=== PATIENT | male | born 1950 | race Caucasian/White ===

== ENCOUNTER 2018-03-01 09:53 | Observation (INO) | payer MEDICARE ==
[2018-03-01] VITALS (10 sets, daily range): BP systolic 125–176; BP diastolic 59–81; PULSE 65–89; RESP 16–20; TEMP 97.8–98.8; O2SAT 96–100
[~2018-03-01] VITALS: Ht 180.3 cm; Wt 82.0 kg
[2018-03-01] MEDS ORDERED: METO25TA3 PO (10:38)
[2018-03-01] MEDS ORDERED: NEXI20CA PO (10:38)
[2018-03-01] MEDS ORDERED: CYMB60CA PO (10:38)
[2018-03-01] MEDS ORDERED: ALLO300 PO (10:38)
[2018-03-01] MEDS ORDERED: PRAS10TA PO (10:38)
[2018-03-01] MEDS ORDERED: LIPI40TA PO (10:38)
[2018-03-01] MEDS ORDERED: RANO500 PO (10:38)
[2018-03-01] MEDS ORDERED: MOBI15TA PO (10:38)
[2018-03-01 10:57] LABS: AUTOMATED NEUTROPHIL # 16.2 TH/MM3 (1.8-7.7); BASOPHIL % 0.2 % (0.0-2.0); EOSINOPHIL % 0.1 % (0.0-4.0); HEMOGLOBIN 13.9 GM/DL (13.0-17.0); LYMPH % 4.8 % (9.0-44.0); LYMPHOCYTE # 0.9 TH/MM3 (1.0-4.8); MEAN PLATELET VOLUME 7.7 FL (7.0-11.0); MONO % 5.2 % (0.0-8.0); MONOCYTE # 0.9 TH/MM3 (0-0.9); NEUT % 89.7 % (16.0-70.0); PLATELET COUNT 208 TH/MM3 (150-450); RED BLOOD COUNT 4.36 MIL/MM3 (4.50-5.90); RED CELL DISTRIBUTION WIDTH 13.1 % (11.6-17.2)
[2018-03-01 11:03] LABS: INTERNATIONAL NORMALIZED RATIO 1.1 RATIO; PROTHROMBIN TIME - PATIENT 10.7 SEC (9.8-11.6)
--- NOTE | 2018-03-01 11:03 | PD ---
HPI Chief Complaint: Chest Pain Time Seen by Provider: 11:03 Travel History International Travel<30 days: No Contact w/Intl Traveler<30days: No Traveled to known affect area: No History of Present Illness HPI 67-year-old male with history of hypertension, CAD, previous stenting and restenting as recent as 2016, gout, presents to the emergency department for evaluation of acute onset chest pain. This was at 7 AM this morning. Patient was bending over putting on his pressure socks when he experienced left-sided chest pain, sharp, aching. It did not radiate anywhere. It was associated with diaphoresis and nausea. [facility] was contacted and upon arrival patient's blood glucose was low. They did give him D50. Shortly after this, the patient states that his chest pain did resolve. He is not currently having any pain. Patient has not been recently ill. 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 He denies any history of DVT or PE. Patient is here on vacation. He has had a stress test within the last year and he was told that it was negative at that time. Patient has no other symptoms to report PFSH Past Medical History Arthritis: Yes High Cholesterol: Yes Congestive Heart Failure: Yes Hypertension: Yes Myocardial Infarction: Yes Past Surgical History Cardiac Surgery: Yes (STENTS X2) Social History Alcohol Use: Yes (OCC) Tobacco Use: No Substance Use: No Allergies-Medications (Allergen,Severity, Reaction): Coded Allergies: No Known Allergies (Unverified , 03/01/18) Reported Meds & Prescriptions Reported Meds & Active Scripts Active Reported Lipitor (Atorvastatin Calcium) 40 Mg Tab 20 Mg PO HS Ranexa ER 12 HR (Ranolazine) 500 Mg Tab 500 Mg PO BID Cymbalta DR (Duloxetine HCl) 60 Mg Capdr 60 Mg PO DAILY Effient (Prasugrel) 10 Mg Tab 10 Mg PO DAILY Mobic (Meloxicam) 15 Mg Tab 15 Mg PO DAILY Zyloprim (Allopurinol) 300 Mg Tab 300 Mg PO DAILY Metoprolol Tartrate 25 Mg Tab 25 Mg PO BID Nexium (Esomeprazole DR) 20 Mg Capdr 20 Mg PO DAILY Review of Systems Except as stated in HPI: all other systems reviewed are Neg Physical Exam Narrative GENERAL: Well-nourished male patient, in no acute distress. SKIN: Focused skin assessment warm/dry. HEAD: Atraumatic. Normocephalic. EYES: Pupils equal and round. No scleral icterus. No injection or drainage. ENT: No nasal bleeding or discharge. Mucous membranes pink and moist. NECK: Trachea midline. No JVD. CARDIOVASCULAR: Regular rate and rhythm. No murmur appreciated. RESPIRATORY: No accessory muscle use. Clear to auscultation. Breath sounds equal bilaterally. GASTROINTESTINAL: Abdomen soft, non-tender, nondistended. Hepatic and splenic margins not palpable. MUSCULOSKELETAL: No obvious deformities. No clubbing. No cyanosis. No edema. NEUROLOGICAL: Awake and alert. No obvious cranial nerve deficits. Motor grossly within normal limits. Normal speech. PSYCHIATRIC: Appropriate mood and affect; insight and judgment normal. Data Data Last Documented VS Vital Signs Date Time Temp Pulse Resp B/P (MAP) Pulse Ox O2 Delivery O2 Flow Rate FiO2 03/01/18 11:00 72 20 137/73 (94) 97 Room Air 03/01/18 10:04 97.8 Orders Orders Electrocardiogram (03/01/18 10:14) B-Type Natriuretic Peptide (03/01/18 10:14) Ckmb (Isoenzyme) Profile (03/01/18 10:14) Complete Blood Count With Diff (03/01/18 10:14) Comprehensive Metabolic Panel (03/01/18 10:14) D-Dimer (03/01/18 10:14) Magnesium (Mg) (03/01/18 10:14) Prothrombin Time / Inr (Pt) (03/01/18 10:14) Act Partial Throm Time (Ptt) (03/01/18 10:14) Troponin I (03/01/18 10:14) Chest, Single Ap (03/01/18 10:14) Sodium Chlor 0.9% 1000 Ml Inj (Ns 1000 M (03/01/18 11:30) Labs Laboratory Tests Test 03/01/18 10:20 White Blood Count 18.0 TH/MM3 Red Blood Count 4.36 MIL/MM3 Hemoglobin 13.9 GM/DL Hematocrit 41.0 % Mean Corpuscular Volume 94.0 FL Mean Corpuscular Hemoglobin 32.0 PG Mean Corpuscular Hemoglobin Concent 34.0 % Red Cell Distribution Width 13.1 % Platelet Count 208 TH/MM3 Mean Platelet Volume 7.7 FL Neutrophils (%) (Auto) 89.7 % Lymphocytes (%) (Auto) 4.8 % Monocytes (%) (Auto) 5.2 % Eosinophils (%) (Auto) 0.1 % Basophils (%) (Auto) 0.2 % Neutrophils # (Auto) 16.2 TH/MM3 Lymphocytes # (Auto) 0.9 TH/MM3 Monocytes # (Auto) 0.9 TH/MM3 Eosinophils # (Auto) 0.0 TH/MM3 Basophils # (Auto) 0.0 TH/MM3 CBC Comment DIFF FINAL Differential Comment Prothrombin Time 10.7 SEC Prothromb Time International Ratio 1.1 RATIO Activated Partial Thromboplast Time 22.6 SEC D-Dimer Quantitative (PE/DVT) 0.33 MG/L FEU Blood Urea Nitrogen 22 MG/DL Creatinine 1.52 MG/DL Random Glucose 165 MG/DL Total Protein 7.1 GM/DL Albumin 4.1 GM/DL Calcium Level 8.9 MG/DL Magnesium Level 2.0 MG/DL Alkaline Phosphatase 91 U/L Aspartate Amino Transf (AST/SGOT) 28 U/L Alanine Aminotransferase (ALT/SGPT) 30 U/L Total Bilirubin 0.7 MG/DL Sodium Level 143 MEQ/L Potassium Level 3.8 MEQ/L Chloride Level 109 MEQ/L Carbon Dioxide Level 19.5 MEQ/L Anion Gap 15 MEQ/L Estimat Glomerular Filtration Rate 46 ML/MIN Total Creatine Kinase 77 U/L Troponin I 0.03 NG/ML B-Type Natriuretic Peptide 97 PG/ML MDM Medical Decision Making Medical Screen Exam Complete: Yes Emergency Medical Condition: Yes Medical Record Reviewed: Yes Differential Diagnosis ACS versus muscle spasm versus chest wall pain versus pleuritic pain Narrative Course 67-year-old male presents emergency department for evaluation of acute onset left-sided chest pain. Patient does not currently have any pain. He appears well. EKG is complete and reviewed by my attending physician without any acute concern. Laboratory Tests Test 03/01/18 10:20 White Blood Count 18.0 TH/MM3 Red Blood Count 4.36 MIL/MM3 Hemoglobin 13.9 GM/DL Hematocrit 41.0 % Mean Corpuscular Volume 94.0 FL Mean Corpuscular Hemoglobin 32.0 PG Mean Corpuscular Hemoglobin Concent 34.0 % Red Cell Distribution Width 13.1 % Platelet Count 208 TH/MM3 Mean Platelet Volume 7.7 FL Neutrophils (%) (Auto) 89.7 % Lymphocytes (%) (Auto) 4.8 % Monocytes (%) (Auto) 5.2 % Eosinophils (%) (Auto) 0.1 % Basophils (%) (Auto) 0.2 % Neutrophils # (Auto) 16.2 TH/MM3 Lymphocytes # (Auto) 0.9 TH/MM3 Monocytes # (Auto) 0.9 TH/MM3 Eosinophils # (Auto) 0.0 TH/MM3 Basophils # (Auto) 0.0 TH/MM3 CBC Comment DIFF FINAL Differential Comment Prothrombin Time 10.7 SEC Prothromb Time International Ratio 1.1 RATIO Activated Partial Thromboplast Time 22.6 SEC D-Dimer Quantitative (PE/DVT) 0.33 MG/L FEU Blood Urea Nitrogen 22 MG/DL Creatinine 1.52 MG/DL Random Glucose 165 MG/DL Total Protein 7.1 GM/DL Albumin 4.1 GM/DL Calcium Level 8.9 MG/DL Magnesium Level 2.0 MG/DL Alkaline Phosphatase 91 U/L Aspartate Amino Transf (AST/SGOT) 28 U/L Alanine Aminotransferase (ALT/SGPT) 30 U/L Total Bilirubin 0.7 MG/DL Sodium Level 143 MEQ/L Potassium Level 3.8 MEQ/L Chloride Level 109 MEQ/L Carbon Dioxide Level 19.5 MEQ/L Anion Gap 15 MEQ/L Estimat Glomerular Filtration Rate 46 ML/MIN Total Creatine Kinase 77 U/L Troponin I 0.03 NG/ML B-Type Natriuretic Peptide 97 PG/ML Last Impressions Chest X-Ray 03/01/18 1014 Signed Impressions: CONCLUSION: 1. No acute cardiopulmonary disease. Patient does have a leukocytosis of 18,000 with a neutrophil count of 16.2. I discussed this with my attending physician who feels this is likely secondary to his steroid injection for his knee. Patient has no other infectious source to be identified at this time. Hyperglycemia likely due to D50 administration prior to arrival. I discussed the findings with the patient. He will be admitted to the chest pain center for further evaluation and observation. He is in agreement with this plan of care. Diagnosis Primary Impression: Chest pain Qualified Codes: R07.9 - Chest pain, unspecified Additional Impression: Leukocytosis Qualified Codes: D72.829 - Elevated white blood cell count, unspecified Admitting Information Admitting Physician Requests: Observation Condition: Stable Lucille Guthrie Mar 01, 2018 11:03
[2018-03-01 11:05] LABS: D-DIMER 0.33 MG/L FEU (0.00-0.50)
--- NOTE | 2018-03-01 11:08 | RADRPT ---
EXAM DATE: 03/01/2018 10:57 AM EDT AGE/SEX: 67 years / Male INDICATIONS: Chest pain. CLINICAL DATA: This is the patient's initial encounter. Patient reports that signs and symptoms have been present for 2 days and indicates a pain score of 3/10. MEDICAL/SURGICAL HISTORY: None. . Stents. COMPARISON: No prior exams available for comparison. FINDINGS: Scattered bilateral calcified granulomas. Otherwise, no significant focal pleural or parenchymal opac ities. The cardiomediastinal contours are unremarkable. Osseous structures are intact. CONCLUSION: 1. No acute cardiopulmonary disease. Electronically signed by: Scooby Hopson MD 03/01/2018 11:07 AM EDT
[2018-03-01 11:15] LABS: BLOOD UREA NITROGEN 22 MG/DL (7-18); CREATININE 1.52 MG/DL (0.60-1.30); GLOMERULAR FILTRATION RATE 46 ML/MIN (>89); GLUCOSE,RANDOM 165 MG/DL (74-106)
[2018-03-01 11:16] LABS: ALBUMIN 4.1 GM/DL (3.4-5.0); ALKALINE PHOSPHATASE 91 U/L (45-117); ALT (GPT) 30 U/L (12-78); AST (GOT) 28 U/L (15-37); BICARBONATE 19.5 MEQ/L (21.0-32.0); CALCIUM 8.9 MG/DL (8.5-10.1); CHLORIDE 109 MEQ/L (98-107); SODIUM (NA) 143 MEQ/L (136-145); TOTAL BILIRUBIN ADULT 0.7 MG/DL (0.2-1.0); TOTAL PROTEIN 7.1 GM/DL (6.4-8.2)
[2018-03-01 11:17] LABS: TROPONIN I 0.03 NG/ML (0.02-0.05)
[2018-03-01] MEDS ORDERED: SODIUM CHLOR 0.9% 1000 ML INJ 1,000 ML IV ONE (11:30)
[2018-03-01] MEDS ORDERED: NITROGLYCERIN 0.4 MG SL 25 TABS/BTL SL PRN (12:00)
[2018-03-01] MEDS ORDERED: ACETAMINOPHEN 500 MG CPLT PO PRN (12:00)
[2018-03-01] MEDS ORDERED: GLUCAGON 1 MG/ML VIAL OTHER PRN (12:00)
[2018-03-01] MEDS ORDERED: ASPIRIN 325 MG TAB PO SCH (12:00)
[2018-03-01] MEDS ORDERED: SODIUM CHLORIDE 0.9% FLUSH 10 ML FLUSH IV FLUSH PRN (12:00)
[2018-03-01] MEDS ORDERED: DEXTROSE 50% IN WATER 50 ML VIAL(D50) IV PUSH PRN (12:00)
--- NOTE | 2018-03-01 12:28 | EKG ---
Date Performed: 03/01/2018 Time Performed: 10:07:50 PTAGE: 67 years EKG: Sinus rhythm NORMAL ECG NO PREVIOUS TRACING DOCTOR: Kelvin Garcia Interpretating Date/Time 03/01/2018 12:25:51
--- NOTE | 2018-03-01 12:49 | PD ---
Physical Exam Narrative I, Dr. Fortune, have reviewed the advance practice practitioner's documentation and am in agreement, met with the patient face to face, made the diagnosis, and the medical decision making was done by me. *My assessment and Findings: We see mid-level provider note for full history and physical and disposition.Patient presents to the emergency department complaining of left-sided chest pain, nonradiating, started this morning, constant initially but now resolved, pressure-like, no aggravating factors. States that his blood sugar was low by EMS when he got D50 felt better. Reports sweating and nausea but denies fever, chills, vomiting, shortness of breath, lower extremity edema. He traveled from [place] recently. Data Data Last Documented VS Vital Signs Date Time Temp Pulse Resp B/P (MAP) Pulse Ox O2 Delivery O2 Flow Rate FiO2 03/01/18 11:00 72 20 137/73 (94) 97 Room Air 03/01/18 10:04 97.8 Orders Orders Electrocardiogram (03/01/18 10:14) B-Type Natriuretic Peptide (03/01/18 10:14) Ckmb (Isoenzyme) Profile (03/01/18 10:14) Complete Blood Count With Diff (03/01/18 10:14) Comprehensive Metabolic Panel (03/01/18 10:14) D-Dimer (03/01/18 10:14) Magnesium (Mg) (03/01/18 10:14) Prothrombin Time / Inr (Pt) (03/01/18 10:14) Act Partial Throm Time (Ptt) (03/01/18 10:14) Troponin I (03/01/18 10:14) Chest, Single Ap (03/01/18 10:14) Sodium Chlor 0.9% 1000 Ml Inj (Ns 1000 M (03/01/18 11:30) Admit Order (Ed Use Only) (03/01/18 11:44) Labs Laboratory Tests Test 03/01/18 10:20 White Blood Count 18.0 TH/MM3 Red Blood Count 4.36 MIL/MM3 Hemoglobin 13.9 GM/DL Hematocrit 41.0 % Mean Corpuscular Volume 94.0 FL Mean Corpuscular Hemoglobin 32.0 PG Mean Corpuscular Hemoglobin Concent 34.0 % Red Cell Distribution Width 13.1 % Platelet Count 208 TH/MM3 Mean Platelet Volume 7.7 FL Neutrophils (%) (Auto) 89.7 % Lymphocytes (%) (Auto) 4.8 % Monocytes (%) (Auto) 5.2 % Eosinophils (%) (Auto) 0.1 % Basophils (%) (Auto) 0.2 % Neutrophils # (Auto) 16.2 TH/MM3 Lymphocytes # (Auto) 0.9 TH/MM3 Monocytes # (Auto) 0.9 TH/MM3 Eosinophils # (Auto) 0.0 TH/MM3 Basophils # (Auto) 0.0 TH/MM3 CBC Comment DIFF FINAL Differential Comment Prothrombin Time 10.7 SEC Prothromb Time International Ratio 1.1 RATIO Activated Partial Thromboplast Time 22.6 SEC D-Dimer Quantitative (PE/DVT) 0.33 MG/L FEU Blood Urea Nitrogen 22 MG/DL Creatinine 1.52 MG/DL Random Glucose 165 MG/DL Total Protein 7.1 GM/DL Albumin 4.1 GM/DL Calcium Level 8.9 MG/DL Magnesium Level 2.0 MG/DL Alkaline Phosphatase 91 U/L Aspartate Amino Transf (AST/SGOT) 28 U/L Alanine Aminotransferase (ALT/SGPT) 30 U/L Total Bilirubin 0.7 MG/DL Sodium Level 143 MEQ/L Potassium Level 3.8 MEQ/L Chloride Level 109 MEQ/L Carbon Dioxide Level 19.5 MEQ/L Anion Gap 15 MEQ/L Estimat Glomerular Filtration Rate 46 ML/MIN Total Creatine Kinase 77 U/L Troponin I 0.03 NG/ML B-Type Natriuretic Peptide 97 PG/ML MDM Supervised Visit with GARCIA: Yes Interpretation(s) ECG: Sinus rhythm, normal axis, QTC 459, T-wave inversion in lead V1 Diagnosis Primary Impression: Chest pain Qualified Codes: R07.9 - Chest pain, unspecified Additional Impression: Leukocytosis Qualified Codes: D72.829 - Elevated white blood cell count, unspecified Admitting Information Admitting Physician Requests: Observation Condition: Stable Maribell Fortune MD Mar 01, 2018 12:49
--- NOTE | 2018-03-01 13:19 | HHI.HP ---
HPI Primary Care Physician PCP [place], [place] Chief Complaint Chest pain History of Present Illness 67-year-old male history of coronary artery disease and x2 cardiac stents present to ER for further evaluation of chest pain. Visiting from [place], arrived last night 2329. Woke up around 0700 and "didn't feel right." As the morning progressed experienced nausea, became lightheaded, and developed left anterior chest pain. Characterized as pressure. Severity 8/10. No radiation. No associated symptoms of dyspnea or vomiting. Associated symptoms included diaphoresis. Called EMS. blood glucose level was 45, states EMT checked his glucose twice to verify low level. EMT administered glucose in route. reports feeling much better fairly quickly after receiving glucose, bringing pain level to 4/10. Completely chest pain free now. Total duration 3 hours. No precipitating factors. Chest pressure similar to past cardiac events. STEMI 2013 , x1 stent placed to his LAD. In 2017 chest pressure again sounds that he was NSTEMI. Reports restenosis of stent. Does not require nitro SL for angina. Placed on Ranexa since first MA in 2013. Recent chemical stress test 6 months ago reported to be normal. No history of diabetes or past hypoglycemic events. Review of Systems General: No fatigue, weakness, fever, chills, recent illness, or change in appetite. Arrived from [place] 0 last evening by plane. Has been in his general state of health. Visiting family and assisting with home repairs, returning to [place] on Sunday. HEENT: No SAMANO, no vision changes, no nasal congestion or drainage, no dysphasia CV: As stated above. No further chest discomfort. Dizziness resolved. RESP: No SOB, cough, wheeze, recent URI, or history of PE or DVT GI: Nausea resolved. No vomiting or bowel changes. No change in appetite. : No dysuria, urgency, or frequency. History of GERD. EXT: Recent galarza's cyst injected with steroids. Recent diagnosed with PVD 2 weeks ago and use of compression shocking encouraged. MS: No discomfort, injury, or change in ROM NEURO: No change in memory, difficulty with balance, LOC, or motor/sensory deficits PSYCH: No anxiety, depression, or suicidal ideation SKIN: No rashes, no concerning lesions Past Family Social History Allergies: Coded Allergies: No Known Allergies (Unverified , 03/01/18) Past Medical History CAD, x2 cardiac stents, GERD, kidney stones, Galarza's cyst, hypertension, right second digit partial traumatically amputated Past Surgical History None Reported Medications Reported Meds & Active Scripts Active Reported Lipitor (Atorvastatin Calcium) 40 Mg Tab 20 Mg PO HS Ranexa ER 12 HR (Ranolazine) 500 Mg Tab 500 Mg PO BID Cymbalta DR (Duloxetine HCl) 60 Mg Capdr 60 Mg PO DAILY Effient (Prasugrel) 10 Mg Tab 10 Mg PO DAILY Mobic (Meloxicam) 15 Mg Tab 15 Mg PO DAILY Zyloprim (Allopurinol) 300 Mg Tab 300 Mg PO DAILY Metoprolol Tartrate 25 Mg Tab 25 Mg PO BID Nexium (Esomeprazole DR) 20 Mg Capdr 20 Mg PO DAILY Active Ordered Medications Current Medications Medications (Trade) Dose Ordered Sig/Shell Route Start Time Stop Time Status Last Admin (NS Flush) 2 ml UNSCH PRN IV FLUSH 03/01/18 12:00 (NS Flush) 2 ml BID IV FLUSH 03/01/18 21:00 (Tylenol) 500 mg Q4H PRN PO 03/01/18 12:00 (Nitrostat Sl) 0.4 mg Q5M PRN SL 03/01/18 12:00 (D50w (Vial) Inj) 50 ml UNSCH PRN IV PUSH 03/01/18 12:00 (Glucagon Inj) 1 mg UNSCH PRN OTHER 03/01/18 12:00 (Aspirin) 325 mg DAILY PO 03/02/18 09:00 UNV Family History Noncontributory for early onset cardiovascular disease Social History No coronary artery disease, hypertension, and appropriately on statin therapy. No known diabetes. Former smoker quitting nearly 40 years ago. Occasional alcohol use. . Retired. Endorses active lifestyle. Past cardiac testing Lexiscan 6 months ago reported to be normal. No known heart damage, reports normal EF. 2013 x1 cardiac stent-LAD 2016 x1 cardiac stent-restenosis of LAD stent Dr. Armstrong brain surgeon in [place], [place] Physical Exam Vital Signs Vital Signs Date Time Temp Pulse Resp B/P (MAP) Pulse Ox O2 Delivery O2 Flow Rate FiO2 03/01/18 12:37 84 19 160/71 (100) 99 Room Air 03/01/18 11:00 72 20 137/73 (94) 97 Room Air 03/01/18 10:04 97.8 73 16 135/59 (84) 98 Physical Exam GENERAL: Alert WN, WD, NAD, pleasant, male HEAD: NC, AT CV: RRR, without murmur, rub, or gallop, no JVD, no S3-S4. RESP: Clear lungs throughout bilateral, no crackles, wheeze, rhonchi, symmetrical chest rise, nonlabored, able to speak in full sentences ABD: Soft, NT, ND, no masses, positive bowel tones EXT: Pulses +2x4, no dependent edema, bilateral lower extremity varicose veins MS: Normal tone x4 extremities, no obvious deformities, full range of motion NEURO: CN II through CN XII grossly intact, motor strength 5/5 PSYCH: A+O x3, pleasant affect, appropriate speech, mood, insight and judgment SKIN: Normal turgor, normal texture, no lesions, no rashes, brisk cap refill, decreased hair distribution lower extremities Laboratory Laboratory Tests Test 03/01/18 10:20 White Blood Count 18.0 Red Blood Count 4.36 Hemoglobin 13.9 Hematocrit 41.0 Mean Corpuscular Volume 94.0 Mean Corpuscular Hemoglobin 32.0 Mean Corpuscular Hemoglobin Concent 34.0 Red Cell Distribution Width 13.1 Platelet Count 208 Mean Platelet Volume 7.7 Neutrophils (%) (Auto) 89.7 Lymphocytes (%) (Auto) 4.8 Monocytes (%) (Auto) 5.2 Eosinophils (%) (Auto) 0.1 Basophils (%) (Auto) 0.2 Neutrophils # (Auto) 16.2 Lymphocytes # (Auto) 0.9 Monocytes # (Auto) 0.9 Eosinophils # (Auto) 0.0 Basophils # (Auto) 0.0 CBC Comment DIFF FINAL Differential Comment Prothrombin Time 10.7 Prothromb Time International Ratio 1.1 Activated Partial Thromboplast Time 22.6 D-Dimer Quantitative (PE/DVT) 0.33 Blood Urea Nitrogen 22 Creatinine 1.52 Random Glucose 165 Total Protein 7.1 Albumin 4.1 Calcium Level 8.9 Magnesium Level 2.0 Alkaline Phosphatase 91 Aspartate Amino Transf (AST/SGOT) 28 Alanine Aminotransferase (ALT/SGPT) 30 Total Bilirubin 0.7 Sodium Level 143 Potassium Level 3.8 Chloride Level 109 Carbon Dioxide Level 19.5 Anion Gap 15 Estimat Glomerular Filtration Rate 46 Total Creatine Kinase 77 Troponin I 0.03 B-Type Natriuretic Peptide 97 Result Diagram: 03/01/18 1020 03/01/18 1020 Imaging Last 48 hours Impressions Chest X-Ray 03/01/18 1014 Signed Impressions: CONCLUSION: 1. No acute cardiopulmonary disease. Course EKG NSR, normal axis, no st t segment changes Caprini VTE Risk Assessment Caprini VTE Risk Assessment: Mod/High Risk (score >= 2) Caprini Risk Assessment Model Point Value = 1 Point Value = 2 Point Value = 3 Point Value = 5 Age 41-60 Minor surgery BMI > 25 kg/m2 Swollen legs Varicose veins or History of unexplained or recurrent spontaneous Oral contraceptives or hormone replacement Sepsis (< 1 month) Serious lung disease, including pneumonia (< 1 month) Abnormal pulmonary function Acute myocardial infarction Congestive heart failure (< 1 month) History of inflammatory bowel disease Medical patient at bed rest Age 61-74 Arthroscopic surgery Major open surgery (> 45 min) Laparoscopic surgery (> 45 min) Malignancy Confined to bed (> 72 hours) Immobilizing plaster cast Central venous access Age >= 75 History of VTE Family history of VTE Factor V Leiden Prothrombin [id number] Lupus anticoagulant Anticardiolipin antibodies Elevated serum homocysteine Heparin-induced thrombocytopenia Other congenital or acquired thrombophilia Stroke (< 1 month) Elective arthroplasty Hip, pelvis, or leg fracture Acute spinal cord injury (< 1 month) Prophylaxis Regimen Total Risk Factor Score Risk Level Prophylaxis Regimen 0-1 Low Early ambulation 2 Moderate Order ONE of the following: *Sequential Compression Device (SCD) *Heparin 5000 units SQ BID 3-4 Higher Order ONE of the following medications: *Heparin 5000 units SQ TID *Enoxaparin/Lovenox 40 mg SQ daily (WT < 150 kg, CrCl > 30 mL/min) *Enoxaparin/Lovenox 30 mg SQ daily (WT < 150 kg, CrCl > 10-29 mL/min) *Enoxaparin/Lovenox 30 mg SQ BID (WT < 150 kg, CrCl > 30 mL/min) AND/OR *Sequential Compression Device (SCD) 5 or more Highest Order ONE of the following medications: *Heparin 5000 units SQ TID (Preferred with Epidurals) *Enoxaparin/Lovenox 40 mg SQ daily (WT < 150 kg, CrCl > 30 mL/min) *Enoxaparin/Lovenox 30 mg SQ daily (WT < 150 kg, CrCl > 10-29 mL/min) *Enoxaparin/Lovenox 30 mg SQ BID (WT < 150 kg, CrCl > 30 mL/min) AND *Sequential Compression Device (SCD) Assessment and Plan Assessment and Plan #1 Chest pain-admitted to chest pain center. Continue ACS protocol initiated in ER. Will be seen and evaluated by Dr. Nehemiah Blair. Discussed possible repeating cardiac testing later this afternoon. This will be determined after evaluation by brain surgeon. Patient agreeable to plan of care. #2 History of CAD-continue Ranexa, Lipitor, Effient, and metoprolol #3 Hypoglycemia-glucose monitoring with hypoglycemia protocol #4 Leukocytosis-likely secondary to recent steroid injection Deborah Jones Mar 01, 2018 13:18
[2018-03-01 14:33] LABS: TROPONIN I 0.06 NG/ML (0.02-0.05)
[2018-03-01] MEDS: PRASUGREL 10 MG TAB PO SCH (15:26)
[2018-03-01] MEDS: RANOLAZINE 500 MG EXTENDED RELEASE TAB PO SCH ×2 (15:27→21:22)
[2018-03-01] MEDS: PANTOPRAZOLE SOD 20 MG DELAYED RELEASE TAB PO SCH (15:27)
[2018-03-01] MEDS: ALLOPURINOL 300 MG TAB PO SCH (15:27)
[2018-03-01] MEDS: DULoxetine HCl DR 60 MG CAP PO SCH (15:27)
--- NOTE | 2018-03-01 15:27 | PD.CARD.PN ---
Subjective Subjective Remarks 67-year-old gentleman visiting from [place] with a known history of coronary artery disease having previously been stented 2 in the LAD. He was told after his last stent that if he had recurring problems he would need open heart surgery. The patient last ate at 4:00 yesterday afternoon before leaving to fly to [place]. He had a beer at about 6:00 at the airport arrived here in the evening slept through the night and awoke at 7:00 this morning basically feeling well. He has to wear support stockings and in the process of placing these on his legs this morning, normally a fairly strenuous process for him, he began to feel lightheaded and dizzy. He subsequently began to feel nauseous and sat in a reclining chair for about 45 minutes to an hour at which time he began to experience left-sided chest pressure similar to that which he had had prior to his previous events. [facility] was contacted and on arrival found a blood glucose of 45 (repeated 2). He has been stable since admission the hospital with 2 negative troponins although there has been a slight bump in the second. Patient was seen and examined personally and I personally spoke to his chief of internal medicine in [place] Doctor Nano Armstrong ([phone]). Plans were determined after consultation with him. Patient will be ruled out using standard chest pain center protocol with a nuclear stress test here in the morning. Need for further intervention will be determined on the basis of that study. Objective Medications Current Medications Medications (Trade) Dose Ordered Sig/Shell Route Start Time Stop Time Status Last Admin (NS Flush) 2 ml UNSCH PRN IV FLUSH 03/01/18 12:00 (NS Flush) 2 ml BID IV FLUSH 03/01/18 21:00 (Tylenol) 500 mg Q4H PRN PO 03/01/18 12:00 (Nitrostat Sl) 0.4 mg Q5M PRN SL 03/01/18 12:00 (D50w (Vial) Inj) 50 ml UNSCH PRN IV PUSH 03/01/18 12:00 (Glucagon Inj) 1 mg UNSCH PRN OTHER 03/01/18 12:00 (Aspirin) 325 mg DAILY PO 03/02/18 09:00 (Zyloprim) 300 mg DAILY PO 03/01/18 14:00 (Lipitor) 20 mg HS PO 03/01/18 21:00 (Cymbalta Dr) 60 mg DAILY PO 03/01/18 16:00 (Lopressor) 25 mg BID PO 03/01/18 21:00 (Effient) 10 mg DAILY PO 03/01/18 16:00 (Ranexa) 500 mg BID PO 03/01/18 16:00 (Protonix) 20 mg DAILY PO 03/01/18 15:00 Vital Signs / I&O Vital Signs Date Time Temp Pulse Resp B/P (MAP) Pulse Ox O2 Delivery O2 Flow Rate FiO2 03/01/18 15:00 98.8 73 18 148/66 (93) 96 03/01/18 14:15 03/01/18 12:37 84 19 160/71 (100) 99 Room Air 03/01/18 11:00 72 20 137/73 (94) 97 Room Air 03/01/18 10:04 97.8 73 16 135/59 (84) 98 Physical Exam Well-nourished well-developed man resting quite comfortably Chest clear to auscultation with no rales wheezes rhonchi Cardiovascular regular sinus rhythm with no gallop rub and a soft 1/6 systolic murmur Laboratory Laboratory Tests Test 03/01/18 10:20 03/01/18 13:45 White Blood Count 18.0 TH/MM3 Red Blood Count 4.36 MIL/MM3 Hemoglobin 13.9 GM/DL Hematocrit 41.0 % Mean Corpuscular Volume 94.0 FL Mean Corpuscular Hemoglobin 32.0 PG Mean Corpuscular Hemoglobin Concent 34.0 % Red Cell Distribution Width 13.1 % Platelet Count 208 TH/MM3 Mean Platelet Volume 7.7 FL Neutrophils (%) (Auto) 89.7 % Lymphocytes (%) (Auto) 4.8 % Monocytes (%) (Auto) 5.2 % Eosinophils (%) (Auto) 0.1 % Basophils (%) (Auto) 0.2 % Neutrophils # (Auto) 16.2 TH/MM3 Lymphocytes # (Auto) 0.9 TH/MM3 Monocytes # (Auto) 0.9 TH/MM3 Eosinophils # (Auto) 0.0 TH/MM3 Basophils # (Auto) 0.0 TH/MM3 CBC Comment DIFF FINAL Differential Comment Prothrombin Time 10.7 SEC Prothromb Time International Ratio 1.1 RATIO Activated Partial Thromboplast Time 22.6 SEC D-Dimer Quantitative (PE/DVT) 0.33 MG/L FEU Blood Urea Nitrogen 22 MG/DL Creatinine 1.52 MG/DL Random Glucose 165 MG/DL Total Protein 7.1 GM/DL Albumin 4.1 GM/DL Calcium Level 8.9 MG/DL Magnesium Level 2.0 MG/DL Alkaline Phosphatase 91 U/L Aspartate Amino Transf (AST/SGOT) 28 U/L Alanine Aminotransferase (ALT/SGPT) 30 U/L Total Bilirubin 0.7 MG/DL Sodium Level 143 MEQ/L Potassium Level 3.8 MEQ/L Chloride Level 109 MEQ/L Carbon Dioxide Level 19.5 MEQ/L Anion Gap 15 MEQ/L Estimat Glomerular Filtration Rate 46 ML/MIN Total Creatine Kinase 77 U/L 78 U/L Troponin I 0.03 NG/ML 0.06 NG/ML B-Type Natriuretic Peptide 97 PG/ML Imaging Last 24 hours Impressions Chest X-Ray 03/01/18 1014 Signed Impressions: CONCLUSION: 1. No acute cardiopulmonary disease. Nehemiah Blair MD Mar 01, 2018 15:27
[2018-03-01] MEDS ORDERED: REGADENOSON INJ 0.4 MG/5 ML SYR IV ONE (15:45)
[2018-03-01 18:39] LABS: TROPONIN I 0.06 NG/ML (0.02-0.05)
[2018-03-01] MEDS ORDERED: ATORVASTATIN 20 MG TAB PO SCH (21:00)
[2018-03-01] MEDS: METOPROLOL TARTRATE 25 MG TAB PO SCH (21:22)
[2018-03-01] MEDS: SODIUM CHLORIDE 0.9% FLUSH 10 ML FLUSH IV FLUSH SCH (21:24)
[2018-03-02] VITALS: PULSE 79
[2018-03-02 04:00] VITALS: PULSE 58
[2018-03-02 04:13] VITALS: BP 149/65; PULSE 66; RESP 16; TEMP 98.1; O2SAT 99
[2018-03-02 08:00] VITALS: BP 158/72; PULSE 57; RESP 20; TEMP 96.9; O2SAT 98
--- NOTE | 2018-03-02 08:31 | EKG ---
Date Performed: 03/01/2018 Time Performed: 19:24:12 PTAGE: 67 years EKG: Sinus rhythm NORMAL ECG No change PREVIOUS TRACING : 03/01/2018 16.23 DOCTOR: Nehemiah Blair Interpretating Date/Time 03/02/2018 08:31:24
--- NOTE | 2018-03-02 08:32 | EKG ---
Date Performed: 03/01/2018 Time Performed: 16:23:44 PTAGE: 67 years EKG: Sinus rhythm NORMAL ECG No change PREVIOUS TRACING : 03/01/2018 13.49 DOCTOR: Nehemiah Blair Interpretating Date/Time 03/02/2018 08:32:02
--- NOTE | 2018-03-02 08:33 | EKG ---
Date Performed: 03/01/2018 Time Performed: 13:49:22 PTAGE: 67 years EKG: Sinus rhythm NORMAL ECG No change PREVIOUS TRACING : 03/01/2018 10.07 DOCTOR: Nehemiah Blair Interpretating Date/Time 03/02/2018 08:32:23
[2018-03-02] MEDS ORDERED: ASPIRIN 325 MG TAB PO SCH (09:00)
[2018-03-02] MEDS: RANOLAZINE 500 MG EXTENDED RELEASE TAB PO SCH (09:04)
[2018-03-02] MEDS: ALLOPURINOL 300 MG TAB PO SCH (09:04)
[2018-03-02] MEDS: DULoxetine HCl DR 60 MG CAP PO SCH (09:04)
[2018-03-02] MEDS: SODIUM CHLORIDE 0.9% FLUSH 10 ML FLUSH IV FLUSH SCH (09:05)
[2018-03-02] MEDS: PRASUGREL 10 MG TAB PO SCH (09:05)
[2018-03-02] MEDS: PANTOPRAZOLE SOD 20 MG DELAYED RELEASE TAB PO SCH (09:05)
[2018-03-02 09:50] VITALS: PULSE 56
[2018-03-02 12:00] VITALS: BP 162/77; PULSE 61; RESP 20; TEMP 96; O2SAT 99
[2018-03-02] MEDS: METOPROLOL TARTRATE 25 MG TAB PO SCH (12:17)
--- NOTE | 2018-03-02 12:28 | RADRPT ---
EXAM DATE: 03/02/2018 12:19 PM EDT AGE/SEX: 67 years / Male INDICATIONS:Angina. Coronary artery disease Chest pain. CLINICAL DATA: This is the patient's initial encounter. Patient reports that signs and symptoms have been present for 1 day and indicates a pain score of 8/10. MEDICAL/SURGICAL HISTORY: Congestive heart failure. Hypertension. Coronary artery stent. COMPARISON: No prior exams available for comparison. DOSE: 8.2 mCi Tc 99m Myoview at rest 25.4 mCi [id number] at stress 0.4 mg Lexiscan STRESS SYMPTOMS: Dyspnea and chest tightness. EJECTION FRACTION: 58 % TECHNIQUE: The patient underwent pharmacologic stress with infusion of prescribed dose. Continuous ECG tracing was monitored during stress. Gated SPECT imaging was performed after stress and conventi onal SPECT imaging was performed at rest. The examination was performed on a SPECT/CT scanner, both attenuation and non-corrected datasets were reviewed. FINDINGS: Distribution: The maximum perfused segment at stress is in the inferolateral wall. Perfusion Study: No reversible perfusion defects. Gated Study: There are intact wall motion and wall thickening without hypokinetic or dyskinetic segm ents. The ejection fraction is calculated at 58%. RISK CATEGORY: Low (<1% Annual Motality Rate) CONCLUSION: 1. No reversible perfusion defects to suggest ischemia. 2. Ejection fraction 58%. Electronically signed by: Jair Cotton MD 03/02/2018 12:26 PM EDT
--- NOTE | 2018-03-02 12:50 | HHI.DCPOC ---
Discharge Care Plan Diagnosis: (1) Hx of coronary artery disease (2) Chest pain (3) Leukocytosis Goals to Promote Your Health * To prevent worsening of your condition and complications * To maintain your health at the optimal level Directions to Meet Your Goals Take your medications as prescribed Follow your dietary instruction Follow activity as directed Keep your appointments as scheduled Take your immunizations and boosters as scheduled If your symptoms worsen call your PCP, if no PCP go to Urgent Care Center or Emergency Room Smoking is Dangerous to Your Health. Avoid second hand smoke Call the 24-hour hour crisis hotline for domestic abuse at [facility] Mar 02, 2018 12:50
--- NOTE | 2018-03-03 16:27 | TR ---
Date Performed: 03/02/2018 Time Performed: 10:54:20 DOCTOR: Nehemiah Blair DRUG LIST: CLINICAL HISTORY: CHEST PAIN REASON FOR TEST: CHEST PAIN REASON FOR ENDING: OBSERVATION: CONCLUSION: Lexiscan stress test was performed under standard four minute protocol. Radionuclide was injected one minute prior to ending the test. No electrocardiographic abormalities were present to suggest ischemia. Nuclear imaging and interpretation are pending. COMMENTS:
== END 2018-03-02 15:46 | disposition home or self-care (01) ==
LOC: NEPC 09:53 → NEDA 11:45 → NEPGCP 14:23
PROVIDERS: ADMIT Internal Medicine Interventional Cardiology; ATTEND Internal Medicine Interventional Cardiology
DX: I25.10 Atherosclerotic heart disease of native coronary artery without angina pectoris (principal); E16.2 Hypoglycemia, unspecified; T38.0X5A Adverse effect of glucocorticoids and synthetic analogues, initial encounter; R07.89 Other chest pain; D72.829 Elevated white blood cell count, unspecified; R11.0 Nausea; K21.9 Gastro-esophageal reflux disease without esophagitis; Z87.891 Personal history of nicotine dependence; Z95.5 Presence of coronary angioplasty implant and graft; I11.0 Hypertensive heart disease with heart failure; I50.9 Heart failure, unspecified
CPT/HCPCS: 71045; 78452; 80053; 82550; 82948; 83735; 83880; 84484; 85025; 85379; 85610; 85730; 93005; 93017; 99285; A9502; G0378; J2785; J7030